=== PATIENT | female | born 1950 | race Caucasian/White ===

== ENCOUNTER 2020-03-29 07:46 | Inpatient (IN) ==
--- NOTE | 2020-03-29 08:21 | ERNOTE ---
Dyspnea - General Presenting Symptoms: shortness of breath Time Seen by Provider: 03/29/20 08:13 Source: patient Exam Limitations: no limitations - Immun/Allergies/Home Medications Immunizations: IMMUNIZATION HX Immunizations Up to Date Yes History of Influenza Vaccine Yes Hx Pneumococcal Vaccination Yes Allergies/Adverse Reactions: Allergies losartan Allergy (Mild, Verified 03/15/20 09:29) RASH naproxen [From Naprosyn] Allergy (Mild, Verified 03/15/20 09:29) Hives Sulfa (Sulfonamide Antibiotics) Allergy (Mild, Verified 03/15/20 09:29) Hives Penicillins Adverse Reaction (Mild, Verified 03/15/20 09:29) RASH Tetanus Vaccines and Toxoid [Tetanus Vaccines & Toxoid] Adverse Reaction (Mild, Verified 03/15/20 09:29) RASH AROUND INJECTION SITE Home Medications: HOME MEDICATIONS Aspirin [Aspirin Enteric Coated] 81 mg PO DAILY 11/30/15 [Last Taken Unknown] amlodipine 10 mg tablet 10 mg PO BID tab 09/11/18 [Last Taken 05/04/19] ibuprofen 800 mg tablet 800 mg PO TID-QID PRN #90 tab 02/25/19 [Last Taken Unknown] alprazolam 1 mg tablet 1 mg PO BID-TID PRN #60 tab 07/01/19 [Last Taken Unknown] albuterol sulfate 2.5 mg IH Q6H PRN #90 ml 03/15/20 [Last Taken Unknown] nebulizers See Rx Instructions .ROUTE .MEDSUPPLY #1 ea 03/15/20 [Last Taken Unknown] methylprednisolone 4 mg tablets in a dose pack See Rx Instructions PO PER PKG DIR #21 tab 03/25/20 [Last Taken Unknown] Atorvastatin Calcium [Lipitor] 20 mg PO DAILY 03/29/20 [Last Taken Unknown] Escitalopram Oxalate [Lexapro] 20 mg PO DAILY 03/29/20 [Last Taken Unknown] Metoprolol Succinate 200 mg PO DAILY 03/29/20 [Last Taken Unknown] - History of Present Illness Narrative: Patient states she has been having respiratory problems for about 7 weeks. She has been diagnosed with double pneumonia. She is just finished with antibiotics and at the end of a steroid pack. She states that when she takes the steroid she believes she gets more short of breath as she did this morning. She arrived with saturations in the 70% range. She states she has been tested for Covid twice, the last time being March 16. Severity: severe Treatment UTILITY LOCATE TECHNICIAN: albuterol Review of Systems - Review of Systems Constitutional: Present: recent illness, fever, chills ENT: Absent: nose congestion, nasal drainage Respiratory: Present: See HPI, shortness of breath, cough Cardiology: Absent: chest pain, palpitations Gastrointestinal/Abdominal: Absent: nausea, vomiting Genitourinary: Absent: frequency, dysuria Musculoskeletal: Present: back pain - low back Skin: Absent: rash Neurological: Absent: numbness, tingling Endocrine: Absent: excessive sweating, flushing Psych: Present: anxiety Medical History (Last Reviewed 03/29/20 @ 08:20 by Cornell Portillo DO) Anxiety disorder Onset Date: Unknown Arthritis Onset Date: Unknown Depressive disorder Onset Date: ~05/27/14 Hypertension Onset Date: Unknown Hypovitaminosis D Onset Date: ~05/28/14 Cervical neoplasm Onset Date: Unknown Surgical History: Surgical History (Last Reviewed 03/29/20 @ 08:20 by Cornell Portillo DO) History of aorto-femoral bypass Onset Date: ~10/2014 Aortobifemoral: aortic endarterectomy, femoral endarterectomy History of appendectomy Onset Date: ~1979 [id number]: lap-appy History of cardiac catheterization Onset Date: ~2003 History of carpal tunnel release Onset Date: Unknown History of cataract surgery Onset Date: 05/04/19 right History of cervical cancer Onset Date: ~1981 History of cholecystectomy Onset Date: 09/10/02 Steve History of cryosurgery Onset Date: Unknown History of dilation and curettage Onset Date: Unknown History of hand surgery Onset Date: Unknown unknown hand surgery 12/01/15 wrist surgery: ORIF of bilateral distal radius fractures with intra- articular extension per Dr Garcia History of hysterectomy Onset Date: ~2000 endometriosis History of laparoscopy Onset Date: ~2000 History of left knee surgery Onset Date: Unknown History of splenectomy Onset Date: 12/14/10 Dr Wilson History of tonsillectomy Onset Date: Unknown History of tubal ligation Onset Date: Unknown Subclavian bypass stenosis Onset Date: ~1989 subclavian bypass in left and stent in right Family History: Family History (Last Reviewed 03/29/20 @ 08:20 by Cornell Portillo DO) Mother Hx of CABG Diabetes Brother Diabetes Father Diabetes Hypertension Myocardial infarction Sister Diabetes Social History: (Last Reviewed 03/29/20 @ 08:20 by Cornell Portillo DO) Social History: Marital status: household members: spouse Service: No Tobacco: Smoking Status: Current every day smoker tobacco type: cigarettes Smoking cigarettes per day: 20.0 Smoking packs per day: 1 Alcohol: alcohol intake: current alcohol intake frequency: holiday/special occasion Substance Use: substance use type: does not use Physical Exam - Physical Exam General Appearance: Present: wd/wn, alert, mild distress Head Exam: Present: normal inspection, no evidence of injury Neck: Present: normal inspection, nontender, supple Respiratory: Present: respiratory distress, crackles - right mid lung. Absent: wheezing Cardiovascular/Chest: Present: regular rate, rhythm, no murmur Gastrointestinal/Abdominal: Present: normal bowel sounds, nontender, nondistended, soft Back Exam: Present: no CVA tenderness, no vertebral tenderness Extremity Exam: Present: normal inspection, normal range of motion, no edema Neurological Exam: Present: alert, oriented, no motor/sensory deficits Skin Exam: Present: normal color, warm/dry Lymphatic Exam: Present: no adenopathy Progress - Results and Orders Patient's Lab Results:: I have reviewed the patient's lab results. - Vital Signs Patient's Vital Signs:: I have reviewed the patient's vital signs. Vital Signs: Vital Signs 03/29/20 07:46 Temperature 36.2 C Pulse Rate 112 H Respiratory Rate 26 H Blood Pressure 152/13 H O2 Sat by Pulse Oximetry 67 L - EKG EKG #1 EKG: other - Sinus bradycardia with short HI EKG read: Interp. by md - X-Ray X-Ray #1 X-Ray: chest Interpretation: Interp. by md X-ray Comments: IMPRESSION: 1. PROGRESSING BIBASILAR INFILTRATES INDICATIVE OF MULTIFOCAL PNEUMONIA. 2. BILATERAL PLEURAL EFFUSIONS ARE SHOWING INTERVAL INCREASE IN SIZE FROM PRIOR EXAMINATIONS. 3. UNDERLYING CHRONIC FINDINGS ABOVE. Electronically signed by Joaquim Hubbard D.O.. - CT/Ultrasound CT/Ultrasound Narrative: CTA chest IMPRESSION: 1. NO EVIDENCE FOR PULMONARY EMBOLISM. 2. MODERATE TO LARGE RIGHT AND MODERATE LEFT PLEURAL EFFUSIONS WITH ASSOCIATED SIGNIFICANT COMPRESSIVE ATELECTASIS OF THE BILATERAL LOWER LOBES. 3. CHRONIC FINDINGS ABOVE. Electronically signed by Joaquim Hubbard D.O.. - Progress/Reassessment Chief Complaint: Dyspnea Progress:: Improved Progress Note-Subjective: 03/29/20 09:17 We have been having difficulty getting oxygen saturation readings to fully evaluate her oxygenation. ABG showed oxygen down to 49.2 and a pH of 7.181 with a CO2 of 60.3. Patient was initially against having BiPAP but after these results she has agreed to try BiPAP we will start a settings of 12/6 FiO2 of 1 and rate of 12 and titrate from there. 03/29/20 12:[address] Benítez and she agrees with admission, inpatient status continue BiPAP and other current therapy. 03/29/20 12:24 I spoke with the patient about admission and she agrees. Patient is much more comfortable able to speak in full sentences and definitely improving. 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 Heart Sounds: Regular Breath Sounds: Crackles - right Peripheral Pulse: Radial Peripheral Pulse Strength: Normal Capillary Refill: < 3 seconds Skin Color/Condition: Warm
[2020-03-29 08:34] LABS: Hemoglobin 14.4 gm/dL (12.5-16.0); Mean Cell Volume 99.3 fl (78-100); Mean Corpuscular Hemoglobin 31.8 pg (27-31); Mean Platelet Volume 11.6 fl (8-12.5); Neutrophil # 12.7 K/mm3 (1.3-6.0); Neutrophil % 87.1 % (42-75.0); Platelet Count 216 K/mm3 (150-450); Red Blood Count 4.53 M/mm3 (4.2-5.4); Red Cell Distribution Width 14.5 % (11.5-14.0); White Blood Count 14.6 K/mm3 (4.0-10.5)
[2020-03-29] MEDS ORDERED: cefTRIAXone SODIUM 1,000 MG/100 ML BAG IV ONE (08:58)
[2020-03-29] MEDS ORDERED: AZITHROMYCIN 250 MG TABLET PO ONE (08:58)
[2020-03-29] MEDS ORDERED: KETOROLAC TROMETHAMINE 30 MG/ML VIAL IV ONE (09:03)
[2020-03-29] MEDS: NORMAL SALINE 1,000 ML IV PRN ×2 (09:17→10:34)
[2020-03-29 09:18] LABS: Troponin I Less than 0.017 ng/mL (0.00-0.10)
[2020-03-29 09:25] LABS: ALT 29 U/L (19-67); AST 35 U/L (0-48); Albumin * 4.2 gm/dl (3.4-5.0); Alkaline Phosphatase * 61 U/L (50-170); BNP * 15973 pg/mL (5-325); BUN/Creatinine Ratio 27.4 (9.0-21.6); Bilirubin, Total 0.6 mg/dL (0.0-1.1); Blood Urea Nitrogen 45 mg/dL (3-23); Ca. Corrected For Albumin 9.4 mg/dL (8.4-10.2); Calcium * 9.9 mg/dL (7.9-10.9); Carbon Dioxide 21.8 mmol/L (24-32.6); Chloride 101 mmol/L (97-106); Glucose * 150 mg/dL (70-110); Potassium 4.8 mmol/L (3.4-4.6); Sodium 135 mmol/L (132-142); Total Protein 8.1 gm/dL (6.2-8.2)
[2020-03-29] MEDS ORDERED: FUROSEMIDE 10 MG/ML VIAL IV ONE (12:23)
--- NOTE | 2020-03-29 13:33 | HP ---
Chief Complaint - Chief Complaint Date of Service: 03/29/20 Time of Service: 12:24 Chief Complaint: Shortness of breath x7 weeks History of Present Illness: 69-year-old female with a past medical history of anxiety, hypertension, depr ession, arthritis, presents from home with complaints of shortness of breath for the past 7 weeks. She states she has been seen by her PCP several times and was given antibiotics, steroids and a nebulizer. She felt the nebulizer helped somewhat. Her symptoms persisted and she presented to the ER today. She does have a smoking history and currently smokes 1 pack of cigarettes daily, she has smoked for 50 years. In the ER she was found to be hypoxic with O2 a saturation of 67 on room air. ABG showed pH of 7.18, pCO2 of 60.3, PO2 49.2, bicarb of 22.1. She was placed on BiPAP and repeat ABG 2 hours later showed pH of 7.22, CO2 of 50.9, O2 of 52.9, bicarb of 20.4. CBC was positive for leukocytosis of 14.6, lactic acid was 4 and resolved with IV fluids to 1.7, BNP positive at 15,973. Chest x-ray was positive for bilateral pleural effusions showing interval increase in size from prior examinations, progressing bibasilar infiltrates indicative of multifocal pneumonia, CT angio was negative for pulmonary embolism, positive for moderate to large right and moderate left pleural effusions. She was started on a fluid bolus, ceftriaxone and azithromycin in the emergency room and received 1 dose of Lasix 40 mg IV. Covid test is negative. She is being admitted for acute hypoxic, hypercapnic respiratory failure and multifocal pneumonia. Medical History (Last Reviewed 03/29/20 @ 08:23 by Becca Mustafa RN) Anxiety disorder Onset Date: Unknown Arthritis Onset Date: Unknown Depressive disorder Onset Date: ~05/27/14 Hypertension Onset Date: Unknown Hypovitaminosis D Onset Date: ~05/28/14 Cervical neoplasm Onset Date: Unknown Surgical History: Surgical History (Last Reviewed 03/29/20 @ 08:23 by Becca Mustafa RN) History of aorto-femoral bypass Onset Date: ~10/2014 Aortobifemoral: aortic endarterectomy, femoral endarterectomy History of appendectomy Onset Date: ~1979 [id number]: lap-appy History of cardiac catheterization Onset Date: ~2003 History of carpal tunnel release Onset Date: Unknown History of cataract surgery Onset Date: 05/04/19 right History of cervical cancer Onset Date: ~1981 History of cholecystectomy Onset Date: 09/10/02 Steve History of cryosurgery Onset Date: Unknown History of dilation and curettage Onset Date: Unknown History of hand surgery Onset Date: Unknown unknown hand surgery 12/01/15 wrist surgery: ORIF of bilateral distal radius fractures with intra- articular extension per Dr Garcia History of hysterectomy Onset Date: ~2000 endometriosis History of laparoscopy Onset Date: ~2000 History of left knee surgery Onset Date: Unknown History of splenectomy Onset Date: 12/14/10 Dr Wilson History of tonsillectomy Onset Date: Unknown History of tubal ligation Onset Date: Unknown Subclavian bypass stenosis Onset Date: ~1989 subclavian bypass in left and stent in right Family History: Family History (Last Reviewed 03/29/20 @ 08:23 by Becca Mustafa RN) Mother Diabetes Hx of CABG Brother Diabetes Father Myocardial infarction Hypertension Diabetes Sister Diabetes Social History: (Last Reviewed 03/29/20 @ 08:23 by Becca uMstafa RN) Social History: Marital status: household members: spouse Service: No Tobacco: Smoking Status: Current every day smoker tobacco type: cigarettes Smoking cigarettes per day: 20.0 Smoking packs per day: 1 Alcohol: alcohol intake: current alcohol intake frequency: holiday/special occasion Substance Use: substance use type: does not use Review Of Systems (GEN) - Review of Systems Generalized/Overall Review: Absent: Chills, Fever Respiratory: Present: Shortness of Breath Cardiac: Present: Chest Pain Abdominal: Absent: Abdominal Pain Misc: All systems neg except as marked Immunizations: IMMUNIZATION HX Immunizations Up to Date Yes History of Influenza Vaccine Yes Hx Pneumococcal Vaccination Yes Allergies/Adverse Reactions: Allergies Allergy/AdvReac Type Severity Reaction Status Date / Time losartan Allergy Mild RASH Verified 03/15/20 09:29 naproxen [From Naprosyn] Allergy Mild Hives Verified 03/15/20 09:29 Sulfa (Sulfonamide Allergy Mild Hives Verified 03/15/20 09:29 Antibiotics) Penicillins AdvReac Mild RASH Verified 03/15/20 09:29 Tetanus Vaccines and Toxoid AdvReac Mild RASH Verified 03/15/20 09:29 [Tetanus Vaccines & Toxoid] AROUND INJECTION SITE Home Medications: HOME MEDICATIONS Aspirin [Aspirin Enteric Coated] 81 mg PO DAILY 11/30/15 [Last Taken Unknown] amlodipine 10 mg tablet 10 mg PO BID tab 09/11/18 [Last Taken 05/04/19] ibuprofen 800 mg tablet 800 mg PO TID-QID PRN #90 tab 02/25/19 [Last Taken Unknown] alprazolam 1 mg tablet 1 mg PO BID-TID PRN #60 tab 07/01/19 [Last Taken Unknown] atorvastatin 20 mg tablet See Rx Instructions .ROUTE .COMPLEX #30 tab 12/31/19 [Last Taken Unknown] escitalopram oxalate 20 mg tablet See Rx Instructions .ROUTE .COMPLEX #30 tab 12/31/19 [Last Taken Unknown] metoprolol succinate 100 mg tablet,extended release 24 hr See Rx Instructions .ROUTE .COMPLEX #60 tab 12/31/19 [Last Taken Unknown] albuterol sulfate 2.5 mg IH Q6H PRN #90 ml 03/15/20 [Last Taken Unknown] nebulizers See Rx Instructions .ROUTE .MEDSUPPLY #1 ea 03/15/20 [Last Taken Unknown] methylprednisolone 4 mg tablets in a dose pack See Rx Instructions PO PER PKG DIR #21 tab 03/25/20 [Last Taken Unknown] Exam - Exam Vital Signs: Vital Signs - Last Taken Temp 36.2 C 03/29/20 07:46 Pulse 47 L 03/29/20 13:12 Resp 27 H 03/29/20 13:12 BP 141/56 03/29/20 12:51 Pulse Ox 97 03/29/20 13:12 Constitutional: Present: Alert, Cooperative, Well developed, Well nourished, No distress, Elderly ENT Exam: Present: hearing grossly normal Eye Exam: bilateral eye: normal inspection, PERRL, EOMI Neck: Present: non-tender, supple. Absent: lymphadenopathy (R), lymphadenopathy (L) Back Exam: Present: normal inspection, no CVA tenderness, no vertebral tenderness Respiratory: Present: lungs clear, no respiratory distress, No wheezing, other - BiPAP in place. Absent: no accessory muscle use, crackles, rhonchi Cardiovascular/Chest: Present: normal peripheral pulses, regular rate, rhythm, n o edema, no murmur Peripheral Pulses: dorsalis-pedis (R): 1+, dorsalis-pedis (L): 1+ Abdomen: Present: Normal bowel sounds, soft, nontender Extremity: Present: no pedal edema Skin Exam: Present: normal color, warm/dry Neurologic: Present: alert, normal mood/affect Appearance: Present: appropriate appearance, appropriate insight Eye contact: Present: cooperative, good eye contact Thoughts: Present: normal mood /affect Diagnostic Studies: Abnormal Lab Results 03/29/20 03/29/20 03/29/20 Range/Units 08:00 08:00 08:00 WBC 14.6 H (4.0-10.5) K/mm3 MCH 31.8 H (27-31) pg RDW 14.5 H (11.5-14.0) % Immature Gran % (Auto) 0.60 H (0.001-0.429) % Immature Gran # (Auto) 0.09 H (0.000-0.0310) K/mm3 Neutrophils % 87.1 H (42-75.0) % Lymphocytes % 4.8 L (20-51) % Neutrophils # 12.7 H (1.3-6.0) K/mm3 Lymphocytes # 0.70 L (1.5-3.5) k/mm3 Monocytes # 1.1 H (0.0-1.0) k/mm3 D-Dimer 3.07 H (0.19-0.49) ug/mL pCO2 (32.0-45.0) mmHg pO2 (83.0-108.0) mmHg HCO3 (21.0-28.0) mmol/L Base Excess (-2.0-3.0) mmol/L ABG pH (7.35-7.45) ABG O2 Sat (Measured) (94.0-98.0) % Potassium 4.8 H (3.4-4.6) mmol/L Carbon Dioxide 21.8 L (24-32.6) mmol/L Anion Gap 17.0 H (6.8-13.8) mmol/L BUN 45 H D (3-23) mg/dL Creatinine 1.64 H (0.4-1.4) mg/dL Est GFR (Non-Af Amer) 33 L D (60-130) mL/min BUN/Creatinine Ratio 27.4 H (9.0-21.6) Random Glucose 150 H (70-110) mg/dL Lactic Acid, Venous (0.4-2.0) mmol/L B-Natriuretic Peptide 09141 H (5-325) pg/mL 03/29/20 03/29/20 03/29/20 Range/Units 08:00 09:00 10:55 WBC (4.0-10.5) K/mm3 MCH (27-31) pg RDW (11.5-14.0) % Immature Gran % (Auto) (0.001-0.429) % Immature Gran # (Auto) (0.000-0.0310) K/mm3 Neutrophils % (42-75.0) % Lymphocytes % (20-51) % Neutrophils # (1.3-6.0) K/mm3 Lymphocytes # (1.5-3.5) k/mm3 Monocytes # (0.0-1.0) k/mm3 D-Dimer (0.19-0.49) ug/mL pCO2 60.3 H 50.9 H (32.0-45.0) mmHg pO2 49.2 L 52.9 L (83.0-108.0) mmHg HCO3 20.4 L (21.0-28.0) mmol/L Base Excess -7.1 L -7.6 L (-2.0-3.0) mmol/L ABG pH 7.18 L* 7.22 L (7.35-7.45) ABG O2 Sat (Measured) 74.3 L 80.4 L (94.0-98.0) % Potassium (3.4-4.6) mmol/L Carbon Dioxide (24-32.6) mmol/L Anion Gap (6.8-13.8) mmol/L BUN (3-23) mg/dL Creatinine (0.4-1.4) mg/dL Est GFR (Non-Af Amer) (60-130) mL/min BUN/Creatinine Ratio (9.0-21.6) Random Glucose (70-110) mg/dL Lactic Acid, Venous 4.0 H* (0.4-2.0) mmol/L B-Natriuretic Peptide (5-325) pg/mL Laboratory Results WBC 14.6 K/mm3 (4.0-10.5) H 03/29/20 08:00 RBC 4.53 M/mm3 (4.2-5.4) 03/29/20 08:00 Hgb 14.4 gm/dL (12.5-16.0) 03/29/20 08:00 Hct 45.0 % (37.0-47.0) 03/29/20 08:00 MCV 99.3 fl (78-100) 03/29/20 08:00 MCH 31.8 pg (27-31) H 03/29/20 08:00 MCHC 32.0 g/dl (32-36) 03/29/20 08:00 RDW 14.5 % (11.5-14.0) H 03/29/20 08:00 Plt Count 216 K/mm3 (150-450) 03/29/20 08:00 MPV 11.6 fl (8-12.5) 03/29/20 08:00 Immature Gran % (Auto) 0.60 % (0.001-0.429) H 03/29/20 08:00 Immature Gran # (Auto) 0.09 K/mm3 (0.000-0.0310) H 03/29/20 08:00 Neutrophils % 87.1 % (42-75.0) H 03/29/20 08:00 Lymphocytes % 4.8 % (20-51) L 03/29/20 08:00 Monocytes % 7.4 % (0.0-9) 03/29/20 08:00 Eosinophils % 0.0 % (0.0-3.0) 03/29/20 08:00 Basophils % 0.1 % (0.0-1.0) 03/29/20 08:00 Nucleated RBC % 0.0 k/mm3 (0-1) 03/29/20 08:00 Neutrophils # 12.7 K/mm3 (1.3-6.0) H 03/29/20 08:00 Lymphocytes # 0.70 k/mm3 (1.5-3.5) L 03/29/20 08:00 Monocytes # 1.1 k/mm3 (0.0-1.0) H 03/29/20 08:00 Eosinophils # 0.0 k/mm3 (0.0-0.7) 03/29/20 08:00 Absolute Basophils 0.0 k/mm3 (0.0-0.1) 03/29/20 08:00 D-Dimer 3.07 ug/mL (0.19-0.49) H 03/29/20 08:00 pCO2 50.9 mmHg (32.0-45.0) H 03/29/20 10:55 pO2 52.9 mmHg (83.0-108.0) L 03/29/20 10:55 HCO3 20.4 mmol/L (21.0-28.0) L 03/29/20 10:55 Total CO2 21.9 mmol/L (19.0-24.0) 03/29/20 10:55 Base Excess -7.6 mmol/L (-2.0-3.0) L 03/29/20 10:55 ABG pH 7.22 (7.35-7.45) L 03/29/20 10:55 ABG O2 Sat (Measured) 80.4 % (94.0-98.0) L 03/29/20 10:55 Sodium 135 mmol/L (132-142) 03/29/20 08:00 Plasma Sodium 136 mmol/L (130-142) 03/29/20 08:00 Potassium 4.8 mmol/L (3.4-4.6) H 03/29/20 08:00 Chloride 101 mmol/L (97-106) 03/29/20 08:00 Carbon Dioxide 21.8 mmol/L (24-32.6) L 03/29/20 08:00 Anion Gap 17.0 mmol/L (6.8-13.8) H 03/29/20 08:00 BUN 45 mg/dL (3-23) H D 03/29/20 08:00 Creatinine 1.64 mg/dL (0.4-1.4) H 03/29/20 08:00 Est GFR (Non-Af Amer) 33 mL/min (60-130) L D 03/29/20 08:00 BUN/Creatinine Ratio 27.4 (9.0-21.6) H 03/29/20 08:00 Random Glucose 150 mg/dL (70-110) H 03/29/20 08:00 Lactic Acid, Venous 1.7 mmol/L (0.4-2.0) 03/29/20 11:19 Calcium 9.9 mg/dL (7.9-10.9) 03/29/20 08:00 Calcium Adj for Albumin 9.4 mg/dL (8.4-10.2) 03/29/20 08:00 Total Bilirubin 0.6 mg/dL (0.0-1.1) 03/29/20 08:00 AST 35 U/L (0-48) 03/29/20 08:00 ALT 29 U/L (19-67) 03/29/20 08:00 Alkaline Phosphatase 61 U/L (50-170) 03/29/20 08:00 Troponin I Less than 0.017 ng/mL (0.00-0.10) 03/29/20 08:00 B-Natriuretic Peptide 15594 pg/mL (5-325) H 03/29/20 08:00 Total Protein 8.1 gm/dL (6.2-8.2) 03/29/20 08:00 Albumin 4.2 gm/dl (3.4-5.0) 03/29/20 08:00 SARS-CoV-2 (PCR) Not detected (NotDetected) 03/29/20 08:30 Assessment/Plan - Narrative Narrative: 69-year-old female with a past medical history of anxiety, hypertension, depression, arthritis, presents from home with complaints of shortness of breath for the past 7 weeks. She states she has been seen by her PCP several times and was given antibiotics, steroids and a nebulizer. She felt the nebulizer helped somewhat. Her symptoms persisted and she presented to the ER today. She does have a smoking history and currently smokes 1 pack of cigarettes daily, she has smoked for 50 years. In the ER she was found to be hypoxic with O2 a saturation of 67 on room air. ABG showed pH of 7.18, pCO2 of 60.3, PO2 49.2, bicarb of 22.1. She was placed on BiPAP and repeat ABG 2 hours later showed pH of 7.22, CO2 of 50.9, O2 of 52.9, bicarb of 20.4. CBC was positive for leukocytosis of 14.6, lactic acid was 4 and resolved with IV fluids to 1.7, BNP positive at 15,973. Chest x-ray was positive for bilateral pleural effusions showing interval increase in size from prior examinations, progressing bibasilar infiltrates indicative of multifocal pneumonia, CT angio was negative for pulmonary embolism, positive for moderate to large right and moderate left pleural effusions. She was started on a fluid bolus, ceftriaxone and azithromycin in the emergency room and received 1 dose of Lasix 40 mg IV. Covid test is negative. She is being admitted for acute hypoxic, hypercapnic respiratory failure and multifocal pneumonia. Sepsis reassessment performed at 12:24 PM. Plan #1 continue with ceftriaxone and azithromycin day 1 #2 continue with BiPAP and wean to baseline oxygenation as tolerated. Repeat ABG at 4 PM today. 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
[2020-03-29] MEDS: ENOXAPARIN SODIUM 40 MG/0.4 ML SYRG SC SCH (17:49)
[2020-03-29] MEDS: amLODIPine BESYLATE 10 MG TABLET PO SCH (20:20)
[2020-03-29] MEDS: ROSUVASTATIN CALCIUM 10 MG TABLET PO SCH (20:20)
[2020-03-29] MEDS: ACETAMINOPHEN 500 MG TABLET PO PRN (23:58)
[2020-03-30 06:38] LABS: Hematocrit 39.9 % (37.0-47.0); Hemoglobin 12.5 gm/dL (12.5-16.0); Mean Corpuscular Hemoglobin 30.7 pg (27-31); Mean Corpuscular Hgb Conc 31.3 g/dl (32-36); Mean Platelet Volume 11.4 fl (8-12.5); Neutrophil # 8.1 K/mm3 (1.3-6.0); Neutrophil % 78.1 % (42-75.0); Platelet Count 197 K/mm3 (150-450); Red Blood Count 4.07 M/mm3 (4.2-5.4); Red Cell Distribution Width 14.3 % (11.5-14.0); White Blood Count 10.4 K/mm3 (4.0-10.5)
[2020-03-30 06:52] LABS: Albumin * 3.2 gm/dl (3.4-5.0); Anion Gap 9.1 mmol/L (6.8-13.8); BUN/Creatinine Ratio 27.6 (9.0-21.6); Bilirubin, Total 0.6 mg/dL (0.0-1.1); Ca. Corrected For Albumin 8.8 mg/dL (8.4-10.2); Calcium * 8.5 mg/dL (7.9-10.9); Carbon Dioxide 27.6 mmol/L (24-32.6); Potassium 3.7 mmol/L (3.4-4.6); Total Protein 6.4 gm/dL (6.2-8.2)
[2020-03-30] MEDS: METOPROLOL SUCCINATE 100 MG TABLET.SA PO SCH (08:41)
[2020-03-30] MEDS: ASPIRIN 81 MG TABLET.DR PO SCH (08:41)
[2020-03-30] MEDS: amLODIPine BESYLATE 10 MG TABLET PO SCH ×2 (08:41→20:11)
[2020-03-30] MEDS: ESCITALOPRAM OXALATE 10 MG TAB PO SCH (08:41)
[2020-03-30] MEDS ORDERED: AZITHROMYCIN 250 MG in DEXTROSE 5 % IN WATER 250 ML IV SCH ×2 (09:00)
[2020-03-30] MEDS: AZITHROMYCIN 500 MG in DEXTROSE 5 % IN WATER 250 ML IV SCH ×2 (09:26)
--- NOTE | 2020-03-30 10:16 | PN ---
Subjective - Date and Time Seen Date: 03/30/20 Time: 09:35 Subjective Narrative: She complains of nausea this morning. Denies vomiting. She still has shortness of breath but feels it has improved since yesterday. Objective - Review of Systems Generalized/Overall Review: Denies: Fever Respiratory: Reports: Cough, Shortness of Breath Cardiac: Denies: Chest Pain Abdominal: Reports: Nausea. Denies: Vomiting, Abdominal Pain Misc: All systems neg except as marked - Vitals Vitals: Last Vital Signs Temp 36.7 C 03/30/20 07:16 Pulse 50 L 03/30/20 08:41 Resp 25 H 03/30/20 07:24 BP 163/59 H 03/30/20 08:41 Pulse Ox 93 03/30/20 08:45 - Abnormal Lab Findings Abnormal Lab Findings: Abnormal Lab Results 03/29/20 03/29/20 03/30/20 Range/Units 10:55 14:48 05:42 RBC (4.2-5.4) M/mm3 MCHC (32-36) g/dl RDW (11.5-14.0) % Immature Gran # (Auto) (0.000-0.0310) K/mm3 Neutrophils % (42-75.0) % Lymphocytes % (20-51) % Monocytes % (0.0-9) % Neutrophils # (1.3-6.0) K/mm3 Lymphocytes # (1.5-3.5) k/mm3 Monocytes # (0.0-1.0) k/mm3 pCO2 50.9 H 47.3 H (32.0-45.0) mmHg pO2 52.9 L 68.5 L (83.0-108.0) mmHg HCO3 20.4 L (21.0-28.0) mmol/L Base Excess -7.6 L -5.2 L -4.7 L (-2.0-3.0) mmol/L ABG pH 7.22 L 7.28 L 7.31 L (7.35-7.45) ABG O2 Sat (Measured) 80.4 L 91.4 L (94.0-98.0) % BUN (3-23) mg/dL Creatinine (0.4-1.4) mg/dL Est GFR (Non-Af Amer) (60-130) mL/min BUN/Creatinine Ratio (9.0-21.6) Albumin (3.4-5.0) gm/dl 03/30/20 03/30/20 Range/Units 06:20 06:20 RBC 4.07 L (4.2-5.4) M/mm3 MCHC 31.3 L (32-36) g/dl RDW 14.3 H (11.5-14.0) % Immature Gran # (Auto) 0.04 H (0.000-0.0310) K/mm3 Neutrophils % 78.1 H (42-75.0) % Lymphocytes % 9.8 L (20-51) % Monocytes % 11.0 H (0.0-9) % Neutrophils # 8.1 H (1.3-6.0) K/mm3 Lymphocytes # 1.02 L (1.5-3.5) k/mm3 Monocytes # 1.2 H (0.0-1.0) k/mm3 pCO2 (32.0-45.0) mmHg pO2 (83.0-108.0) mmHg HCO3 (21.0-28.0) mmol/L Base Excess (-2.0-3.0) mmol/L ABG pH (7.35-7.45) ABG O2 Sat (Measured) (94.0-98.0) % BUN 42 H (3-23) mg/dL Creatinine 1.52 H (0.4-1.4) mg/dL Est GFR (Non-Af Amer) 36 L (60-130) mL/min BUN/Creatinine Ratio 27.6 H (9.0-21.6) Albumin 3.2 L (3.4-5.0) gm/dl - Exam Constitutional: Present: Alert, Cooperative, Well developed, Well nourished, No distress, Elderly ENT Exam: Present: hearing grossly normal Neck: Present: non-tender, supple. Absent: lymphadenopathy (R), lymphadenopathy (L) Respiratory: Present: no respiratory distress, no accessory muscle use, other - Diminished breath sounds in bilateral lower lung hunter, right worse than left. The remainder of the lung hunter are clear to auscultation, no wheezing no crackles no rhonchi Abdomen: Present: Normal bowel sounds, soft Extremity: Present: no pedal edema Skin Exam: Present: normal color, warm/dry Neurologic: Present: alert, normal mood/affect Appearance: Present: appropriate appearance, appropriate insight Eye contact: Present: cooperative Thoughts: Present: normal mood /affect Assessment/Plan Plan Narrative: 69-year-old female with a past medical history of anxiety, hypertension, depression, arthritis, presents from home with complaints of shortness of breath for the past 7 weeks. She states she has been seen by her PCP several times and was given antibiotics, steroids and a nebulizer. She felt the nebulizer helped somewhat. Her symptoms persisted and she presented to the ER today. She does have a smoking history and currently smokes 1 pack of cigarettes daily, she has smoked for 50 years. In the ER she was found to be hypoxic with O2 a saturation of 67 on room air. ABG showed pH of 7.18, pCO2 of 60.3, PO2 49.2, bicarb of 22.1. She was placed on BiPAP and repeat ABG 2 hours later showed pH of 7.22, CO2 of 50.9, O2 of 52.9, bicarb of 20.4. CBC was positive for leukocytosis of 14.6, lactic acid was 4 and resolved with IV fluids to 1.7, BNP positive at 15,973. Chest x-ray was positive for bilateral pleural effusions showing interval increase in size from prior examinations, progressing bibasilar infiltrates indicative of multifocal pneumonia, CT angio was negative for pulmonary embolism, positive for moderate to large right and moderate left pleural effusions. She was started on a fluid bolus, ceftriaxone and azithro mycin in the emergency room and received 1 dose of Lasix 40 mg IV. Covid test is negative. She is being admitted for acute hypoxic, hypercapnic respiratory failure and multifocal pneumonia. Plan #1 continue with ceftriaxone and azithromycin day 2 #2 She has been weaned off of BiPAP, ABG has normalized. She is currently on high flow oxygen at 15 L. Continue to wean off the oxygen, goal oxygen saturation is 88-92%. #3 resume home medications for comorbidities #4 VTE prophylaxis #5 start Zofran 4 mg every 6 hours as needed for nausea #6 start DuoNebs every 6 hours. - Problems/Diagnosis (1) Acute respiratory failure with hypoxia and hypercapnia Problem: Acute (2) Multifocal pneumonia Problem: Acute (3) Bilateral pleural effusion Problem: Acute (4) COPD exacerbation Problem: Acute (5) Sepsis Problem: Acute Qualifiers: Sepsis type: sepsis due to unspecified organism Sepsis acute organ dysfunction status: with acute organ dysfunction Severe sepsis acute organ dysfunction type: acute respiratory failure Acute respiratory failure type: with hypoxia Severe sepsis shock status: without septic shock Qualified Code(s): A41.9 - Sepsis, unspecified organism; R65.20 - Severe sepsis without s eptic shock; J96.01 - Acute respiratory failure with hypoxia (6) HTN (hypertension) Problem: Chronic (7) Arthritis Problem: Chronic (8) Anxiety and depression Problem: Chronic
[2020-03-30] MEDS: ALBUTEROL SULFATE/IPRATROPIUM 3 ML NEBU IH SCH ×3 (10:31→18:08)
[2020-03-30] MEDS: ONDANSETRON HCL/PF 2 MG/ML VIAL IV PRN ×2 (13:50→19:53)
[2020-03-30] MEDS: ACETAMINOPHEN 500 MG TABLET PO PRN (15:57)
[2020-03-30] MEDS: ENOXAPARIN SODIUM 40 MG/0.4 ML SYRG SC SCH (18:09)
[2020-03-30] MEDS: ROSUVASTATIN CALCIUM 10 MG TABLET PO SCH (20:10)
[2020-03-31] MEDS: ALBUTEROL SULFATE/IPRATROPIUM 3 ML NEBU IH SCH ×3 (00:52→12:29)
[2020-03-31] MEDS: ACETAMINOPHEN 500 MG TABLET PO PRN ×2 (03:05→09:21)
[2020-03-31 06:21] LABS: Hematocrit 37.7 % (37.0-47.0); Mean Cell Volume 98.7 fl (78-100); Mean Corpuscular Hemoglobin 31.4 pg (27-31); Mean Corpuscular Hgb Conc 31.8 g/dl (32-36); Mean Platelet Volume 11.1 fl (8-12.5); Neutrophil # 7.3 K/mm3 (1.3-6.0); Neutrophil % 75.7 % (42-75.0); Platelet Count 164 K/mm3 (150-450); Red Blood Count 3.82 M/mm3 (4.2-5.4); Red Cell Distribution Width 14.2 % (11.5-14.0); White Blood Count 9.6 K/mm3 (4.0-10.5)
[2020-03-31 06:35] LABS: Anion Gap 8.3 mmol/L (6.8-13.8); BUN/Creatinine Ratio 26.5 (9.0-21.6); Bilirubin, Total 0.5 mg/dL (0.0-1.1); Ca. Corrected For Albumin 8.7 mg/dL (8.4-10.2); Calcium * 8.2 mg/dL (7.9-10.9); Carbon Dioxide 27.6 mmol/L (24-32.6); Potassium 3.9 mmol/L (3.4-4.6); Total Protein 6.2 gm/dL (6.2-8.2)
[2020-03-31] MEDS: ESCITALOPRAM OXALATE 10 MG TAB PO SCH (08:26)
[2020-03-31] MEDS: amLODIPine BESYLATE 10 MG TABLET PO SCH (08:26)
[2020-03-31] MEDS: METOPROLOL SUCCINATE 100 MG TABLET.SA PO SCH (08:26)
[2020-03-31] MEDS: ASPIRIN 81 MG TABLET.DR PO SCH (08:26)
[2020-03-31] MEDS ORDERED: LISINOPRIL 10 MG TABLET PO SCH (09:00)
[2020-03-31] MEDS: AZITHROMYCIN 500 MG in DEXTROSE 5 % IN WATER 250 ML IV SCH ×2 (09:06)
--- NOTE | 2020-03-31 11:05 | DS ---
Transfer Discharge Summary - Diagnosis(s)/Problems (1) Acute respiratory failure with hypoxia and hypercapnia Problem: Acute (2) Multifocal pneumonia Problem: Acute (3) Bilateral pleural effusion Problem: Acute (4) COPD exacerbation Problem: Acute (5) Sepsis Problem: Acute (6) HTN (hypertension) Problem: Chronic (7) Arthritis Problem: Chronic (8) Anxiety and depression Problem: Chronic - Course Description of Stay: 69-year-old female with a past medical history of anxiety, hypertension, depression, arthritis, presents from home with complaints of shortness of breath for the past 7 weeks. She states she has been seen by her PCP several times and was given antibiotics, steroids and a nebulizer. She felt the nebulizer helped somewhat. Her symptoms persisted and she presented to the ER today. She does have a smoking history and currently smokes 1 pack of cigarettes daily, she has smoked for 50 years. In the ER she was found to be hypoxic with O2 a saturation of 67 on room air. ABG showed pH of 7.18, pCO2 of 60.3, PO2 49.2, bicarb of 22.1. She was placed on BiPAP and repeat ABG 2 hours later showed pH of 7.22, CO2 of 50.9, O2 of 52.9, bicarb of 20.4. CBC was positive for leukocytosis of 14.6, lactic acid was 4 and resolved with IV fluids to 1.7, BNP positive at 15,973. Chest x-ray was positive for bilateral pleural effusions showing i nterval increase in size from prior examinations, progressing bibasilar infiltrates indicative of multifocal pneumonia, CT angio was negative for pulmonary embolism, positive for moderate to large right and moderate left pleural effusions. She was started on a fluid bolus, ceftriaxone and azithromycin in the emergency room and received 1 dose of Lasix 40 mg IV. Covid test is negative. She is being admitted for acute hypoxic, hypercapnic respiratory failure and multifocal pneumonia. She continues to have increased work of breathing and is requiring BiPAP. She is only able to come off the BiPAP temporarily to eat and when she is off the BiPAP she requires high flow oxygen at 15 L. ABG has improved to pH of 7.29, PCO2 of 46.2, PO2 of 63, bicarbonate 22, O2 sat at 89.8%. She will require a thoracentesis. I have touched base with gift shop manager Dr. Keyes at [facility] and she suggested transferring the patient to a higher level of care. She did receive 1 dose of methylprednisolone 40 mg IV today. She is Covid negative. Procedures Performed: none - Results and Findings Results and Findings: Laboratory Results - last 24 hr 03/31/20 03/31/20 03/31/20 06:00 06:00 07:00 WBC 9.6 RBC 3.82 L Hgb 12.0 L Hct 37.7 MCV 98.7 MCH 31.4 H MCHC 31.8 L RDW 14.2 H Plt Count 164 MPV 11.1 Immature Gran % (Auto) 0.30 Immature Gran # (Auto) 0.03 Neutrophils % 75.7 H Lymphocytes % 10.9 L Monocytes % 10.1 H Eosinophils % 2.6 Basophils % 0.4 Nucleated RBC % 0.0 Neutrophils # 7.3 H Lymphocytes # 1.05 L Monocytes # 1.0 Eosinophils # 0.3 Absolute Basophils 0.0 pCO2 46.2 H pO2 63.0 L HCO3 22.2 Total CO2 23.6 Base Excess -4.3 L ABG pH 7.30 L ABG O2 Sat (Measured) 89.8 L Sodium 137 Plasma Sodium 137 Potassium 3.9 Chloride 105 Carbon Dioxide 27.6 Anion Gap 8.3 BUN 39 H Creatinine 1.47 H Est GFR (Non-Af Amer) 38 L BUN/Creatinine Ratio 26.5 H Random Glucose 86 Calcium 8.2 Calcium Adj for Albumin 8.7 Total Bilirubin 0.5 AST 20 ALT 22 Alkaline Phosphatase 46 L Total Protein 6.2 Albumin 3.0 L - Medications Medications: Active Medications Acetaminophen (Acetaminophen 500 Mg Tablet) 500 mg PO Q6H PRN PRN Reason: Mild pain (pain scale 1-3) Stop: 04/28/20 14:23 Last Admin: 03/31/20 09:21 Dose: 500 mg Documented by: Albuterol/Ipratropium (Albuterol Sulfate/Ipratropium 3 Ml Nebu) 3 ml IH Q6HRT [facility] Stop: 04/29/20 09:46 Last Admin: 03/31/20 06:10 Dose: 3 ml Documented by: Amlodipine Besylate (Amlodipine Besylate 10 Mg Tablet) 10 mg PO BID [facility] Stop: 04/28/20 21:01 Last Admin: 03/31/20 08:26 Dose: 10 mg Documented by: Aspirin (Aspirin 81 Mg Tablet.) 81 mg PO DAILY [facility] Stop: 04/29/20 09:01 Last Admin: 03/31/20 08:26 Dose: 81 mg Documented by: Enoxaparin Sodium (Enoxaparin Sodium 40 Mg/0.4 Ml Syrg) 40 mg SC Q24H [facility] Stop: 04/28/20 17:46 Last Admin: 03/30/20 18:09 Dose: 40 mg Documented by: Escitalopram Oxalate (Escitalopram Oxalate 10 Mg Tab) 20 mg PO DAILY [facility] Stop: 04/29/20 09:01 Last Admin: 03/31/20 08:26 Dose: 20 mg Documented by: Sodium Chloride (Sodium Chloride 0.9%) 1,000 mls @ 999 mls/hr IV .Q1H1M PRN PRN Reason: HYDRATION Last Infusion: 03/29/20 11:25 Dose: Infused Documented by: Ceftriaxone Sodium 1,000 mg/ (Dextrose/Water) 100 mls @ 200 mls/hr IV Q24H [facility]; Protocol Stop: 04/29/20 09:01 Last Infusion: 03/31/20 09:07 Dose: Infused Documented by: Azithromycin 500 mg/ Dextrose/ (Water) 250 mls @ 250 mls/hr IV Q24H [facility]; Protocol Stop: 04/02/20 09:59 Last Admin: 03/31/20 09:06 Dose: 250 mls/hr Documented by: Metoprolol Succinate (Metoprolol Succinate 100 Mg Tablet.Sa) 200 mg PO DAILY [facility] Stop: 04/29/20 09:01 Last Admin: 03/31/20 08:26 Dose: Not Given Documented by: Ondansetron HCl (Ondansetron Hcl/Pf 2 Mg/Ml Vial) 4 mg IV Q6H PRN PRN Reason: Nausea And Vomiting Stop: 04/29/20 09:45 Last Admin: 03/30/20 19:53 Dose: 4 mg Documented by: Rosuvastatin Calcium (Rosuvastatin Calcium 10 Mg Tablet) 10 mg PO HS [facility] Stop: 04/28/20 21:01 Last Admin: 03/30/20 20:10 Dose: 10 mg Documented by: Discontinued Medications Azithromycin (Azithromycin 250 Mg Tablet) 500 mg PO ONCE ONE; Protocol Stop: 03/29/20 08:59 Last Admin: 03/29/20 09:16 Dose: 500 mg Documented by: Furosemide (Furosemide 10 Mg/Ml Vial) 40 mg IV ONCE ONE Stop: 03/29/20 12:24 Last Admin: 03/29/20 12:51 Dose: 40 mg Documented by: Ceftriaxone Sodium (Rocephin 1000 Mg Er Piggyback) 1,000 mg in 100 mls @ 200 mls/hr IV ONCE ONE Stop: 03/29/20 09:27 Last Infusion: 03/29/20 10:20 Dose: Infused Documented by: Ketorolac Tromethamine (Ketorolac Tromethamine 30 Mg/Ml Vial) 15 mg IV ONCE ONE Stop: 03/29/20 09:04 Last Admin: 03/29/20 09:16 Dose: 15 mg Documented by: - Disposition Disposition: Short Term Hospital Inpatient Condition: Serious
[2020-03-31] MEDS ORDERED: METHYLPREDNISOLONE SOD SUCC/PF 40 MG/ML VIAL IV SCH (12:45)
[2020-03-31] MEDS: ENOXAPARIN SODIUM 40 MG/0.4 ML SYRG SC SCH (16:49)
[2020-03-31 17:48] VITALS: BP 148/88
== END 2020-03-31 17:20 | disposition short-term general hospital (02) | DRG 871 ==
LOC: ER 07:46 → MS 12:41
PROVIDERS: ADMIT Internal Medicine; ATTEND Internal Medicine